=== PATIENT | male | born 1980 ===

== ENCOUNTER 2018-07-05 21:56 | Emergency (ER) | payer OTHER ==
[2018-07-05 22:04] VITALS: BP 156/76; PULSE 116; TEMP 98.2; BMI 29.0
[2018-07-05] MEDS ORDERED: CEFAZOLIN 2 GM in DEXTROSE 5%-WATER - 50 ML IVPB ONE (22:17)
[2018-07-05] MEDS ORDERED: morphine CARPU-JECT 2 MG/1 ML DISP.SYRIN IVPUSH ONE (22:17)
[2018-07-05] MEDS ORDERED: DIPHTH,PERTUSS(ACELL),TET 0.5 ML DISP.SYRIN IM ONE (22:17)
[2018-07-05] MEDS ORDERED: LIDOCAINE HCL 1%, 10 MG/ML (50 mL VIAL) INF ONE (22:20)
--- NOTE | 2018-07-05 22:24 | PDOC ---
Attending Attestation - HPI HPI: 07/06/18 00:08 The patient is a 37 yo M with no past medical history, who presents for evaluation of multiple dog bite wounds to bilateral hands and left ankle sustained just prior to arrival. The patient states his dog of many years was looking out of the window, saw a cat and when trying to calm the dog down was attacked. The patient reportedly stumbled in the kitchen as he was attempting to back up and fell. He denies hitting his head or LOC. He reports the dog has been his for several years, is fully vaccinated and this has never happened before. He does not recall his last tetanus shot. - Medical Decision Making 07/06/18 00:10 Documentation prepared by Jessie Smith, acting as medical transport specialist for Criss Johnson MD <Jessie Smith - Last Filed: 07/06/18 00:08> - Resident Resident Name: nAselmo Howell - ED Attending Attestation I have performed the following: I have examined & evaluated the patient, The case was reviewed & discussed with the resident, I agree w/resident's findings & plan, Exceptions are as noted - HPI HPI: 07/05/18 22:22 -year-old male was attacked by his pit bull/husky dog. According to him. The dog got excited after seeing a cat. He sustained multiple puncture wounds to both hands, right forearm and left legs - Physicial Exam PE: 07/06/18 01:05 wnwd 37 yo male presents after his own dog bit both his hands and his leg head ncat neck supple lungs cta b/l cvs [id number] abd nontender ext right and left hands have multiple puncture wounds ,swelling to left thenar emienence,full extension and flexion of all digits,he could abduct and adduct his thumbs leg there is a linear 4 cm laceration near his ankle psych appropriate neuro axox3,ambulatory - Medical Decision Making 07/05/18 22:24 He states he has no significant past medical history He has an allergy to aspirin and ibuprofen. He doesn't recall his last tetanus was 07/06/18 02:26 -plan tetanus,IV antibiotics ,x rays and wound care <Criss Johnson - Last Filed: 07/06/18 02:28>
[2018-07-05] MEDS ORDERED: LIDOCAINE HCL 2% (20ML MULTI-DOSE VIAL) NR ONE (22:27)
[2018-07-05] MEDS ORDERED: MORPHINE SULFATE 2 MG/ML VIAL ONE (22:36)
[2018-07-05] MEDS ORDERED: ceFAZolin SODIUM 1 GM VIAL ONE (22:37)
--- NOTE | 2018-07-05 22:47 | PDOC ---
History of Present Illness - General Chief Complaint: Bite Stated Complaint: DOGBITE Time Seen by Provider: 07/05/18 22:08 - History of Present Illness Initial Comments: The patient is a 37M w/ no reported PMH who presents for evaluation of multiple dog bite wounds that occurred just prior to arrival. The patient states that the dog was his, the dog was excited about a cat and has he went to calm him the dog bit him on both hands. The patient stumbled in the kitchen as he was attempting to back up and fell. He denies hitting his head or LOC. The reports bite wounds to both hands and his L ankle. He reports the dog has been his for several years, is fully vaccinated and this has never happened before. He does not recall his last tetnaus shot. He denies recent illness, fevers/chills, or allergies. 07/05/18 22:41 Past History - Past Medical History Allergies/Adverse Reactions: Allergies Allergy/AdvReac Type Severity Reaction Status Date / Time aspirin Allergy Severe Swelling Verified 07/05/18 22:04 ibuprofen [From Motrin] Allergy Severe Swelling Verified 07/05/18 22:04 Home Medications: Ambulatory Orders Amox-Tr/K Cl [Augmentin - 875Mg Tablet] 1 tab PO BID 10 Days #20 tablet COPD: No - Suicide/Smoking/Psychosocial Hx Smoking History: Never smoked Have you smoked in the past 12 months: No Information on smoking cessation initiated: No Hx Alcohol Use: No Drug/Substance Use Hx: No Substance Use Type: None Review of Systems - Review of Systems Able to Perform ROS?: Yes Comments:: GENERAL/CONSTITUTIONAL: No fever or chills. No weakness HEAD, EYES, EARS, NOSE AND THROAT: No change in vision. No ear pain or discharge. No sore throat CARDIOVASCULAR: No chest pain or shortness of breath RESPIRATORY: No cough, wheezing, or hemoptysis GASTROINTESTINAL: No nausea, vomiting, diarrhea or constipation GENITOURINARY: No dysuria, frequency, or change in urination MUSCULOSKELETAL: per HPI SKIN: per HPI NEUROLOGIC: No headache, vertigo, loss of consciousness, or change in strength/ sensation ENDOCRINE: No increased thirst. No abnormal weight change HEMATOLOGIC/LYMPHATIC: No anemia, easy bleeding, or history of blood clots ALLERGIC/IMMUNOLOGIC: No hives or skin allergy 07/05/18 22:46 Is the patient limited Slovenian proficient: No *Physical Exam - Vital Signs Last Vital Signs Temp Pulse Resp BP Pulse Ox 98.2 F 116 H 25 H 156/76 100 07/05/18 22:01 07/05/18 22:01 07/05/18 22:01 07/05/18 22:01 07/05/18 22:01 - Physical Exam Comments: GENERAL: Awake, alert, and fully oriented, in mild distress HEAD: No signs of trauma, normocephalic, atraumatic EYES: PERRL, EOMI, sclera anicteric, conjunctiva clear ENT: Hearing grossly normal, nares patent, oropharynx clear without exudates. Moist mucosa NECK: Normal ROM, supple LUNGS: No distress, speaks full sentences, clear to auscultation bilaterally HEART:Regular rate and rhythm, normal S1 and S2, no murmurs appreciated, peripheral pulses normal and equal bilaterally ABDOMEN: Soft, nontender, normoactive bowel sounds. No guarding, no rebound NEUROLOGICAL: Cranial nerves II through XII grossly intact. Normal speech, no focal sensorimotor deficits RUE: Inspection: Multiple puncture wounds 2/2 dog bite on dorsal and volar surface of hand. No exposed tendon, no obvious violation of tendon sheaths. No active hemorrhage. Compartments soft and compressible, pain within proportion, no pain to passive stretch. Laceration to ant. forearm, linear, simple, clean, approx 1cm Sensation: sensation present to light touch m/r/u n Motor: intact AIN/PIN/Ulnar in hand; 5/5 Wrist flex/ext; 5/5 Elbow flex/ext; 5/ 5 Shoulder ABd,Flex Vascular: 2+ radial pulse palpated, BCR all fingers <2 sec. LUE: Inspection: Multiple puncture wounds 2/2 dog bite on dorsal and volar surface of hand. No exposed tendon, no obvious violation of tendon sheaths. No active hemorrhage. Compartments soft and compressible, pain within proportion, no pain to passive stretch. Laceration over styloid, linear, simple, clean, approx 1.5cm. Multiple shallow abrasions along forearm without hemorrhage. Sensation: sensation present to light touch m/r/u n Motor: intact AIN/PIN/Ulnar in hand; 5/5 Wrist flex/ext; 5/5 Elbow flex/ext; 5/ 5 Shoulder ABd,Flex Vascular: 2+ radial pulse palpated, BCR all fingers <2 sec. RLE: Inspection: No erythema or ecchymosis. No tenderness, no obvious abnormalities, no open wounds. Compartments soft and compressible, pain within proportion, no pain to passive stretch Sensation: SPLT DP, SP, Tib, [place], Saph Motor: 5/5 EHL, 5/5 FHL, 5/5 TA, 5/5GS, 5/5 Quad, 5/5 Ham Vascular: 2+ DP/PT, all toes BCR <2 sec LLE: Inspection: Linear simple laceration over lateral malleolus without exposed tendon or bone or violation of the joint capsule. No active hemorrhage. Compartments soft and compressible, pain within proportion, no pain to passive stretch Sensation: SPLT DP, SP, Tib, [place], Saph Motor: 5/5 EHL, 5/5 FHL, 5/5 TA, 5/5GS, 5/5 Quad, 5/5 Ham Vascular: 2+ DP/PT, all toes BCR <2 sec 07/05/18 22:46 Procedures - Laceration/Wound Repair Left Hand Wound Length: to 2.5 cm Wound's Depth, Shape: superficial Irrigated w/ Saline: Yes Anesthesia: 2% Lidocaine Wound Debrided: minimal Wound Repaired With: Sutures Suture Size/Type: 4:0 Number of Sutures: 5 Layer Closure: No Sterile Dressing Applied: Yes Right Arm Wound Length: to 2.5 cm Wound's Depth, Shape: superficial Irrigated w/ Saline: Yes Anesthesia: 2% Lidocaine Wound Debrided: minimal Wound Repaired With: Sutures Suture Size/Type: 4:0, proline Number of Sutures: 3 Layer Closure: No Sterile Dressing Applied: Yes Left Lateral Ankle Wound Length: 2.6 to 5.0 cm Wound Explored: no foreign body present Wound's Depth, Shape: superficial Irrigated w/ Saline: Yes Anesthesia: 2% Lidocaine Amount of Anesthetic (ccs): 5 Wound Repaired With: Sutures Number of Sutures: 7 Deep Layer Suture Size/Type: 3:0, other (Nylon) Sterile Dressing Applied: Yes Medical Decision Making - Medical Decision Making The patient is a 37M w/ no reported PMH who presents for evaluation of dog bite wounds to b/l hands and laceration of L lateral ankle ED Course Morphine 2mg IV once Ancef 2g IV once Boostrix IM Laceration repair of L ankle and L wrist All other wounds cleaned and dressed with xeroform and kerlix Refer to procedure note for laceration repair details Wound care instructions given Follow up and return precautions given Rx for Augmentin Plan for D/C w/ wound care f/u Plan discussed w/ patient who verbalized understanding and is in agreement 07/05/18 22:47 Dispo Pending XR 07/06/18 02:30 B/l hand plain films w/o evidence of foreign object Discussed w/ patient importance of wound care and returning in 48 hours for re- evaluation Percocet 5mg once for pain Dispo: Home w/ 07/06/18 04:00 *DC/Admit/Observation/Transfer Diagnosis at time of Disposition: Bite by animal - Discharge Dispostion Disposition: HOME Condition at time of disposition: Improved Decision to Admit order: No - Prescriptions Prescriptions: Amox-Tr/K Cl [Augmentin - 875Mg Tablet] 1 tab PO BID 10 Days #20 tablet - Referrals Referrals: Katelin Felipe MD [Primary Care Provider] - - Patient Instructions Printed Discharge Instructions: How to Care for a Domestic Animal Bite Additional Instructions: You were seen in the Emergency Room tonight for an animal bite. You wounds were clean and dressed. Return to [facility] Emergency Room in 2 days for re- evaluation. Please follow up with your primary care doctor within the next 1-3 days. Return to the Emergency Department if you develop fevers, changes in sensation, decreased function of your hand, severe pain, or any new/concerning symptoms. - Post Discharge Activity
== END 2018-07-06 04:03 | disposition home or self-care (01) ==
LOC: JER 21:56
PROC: 0HQGXZZ Repair Left Hand Skin, External Approach (ICD-10-PCS; principal; 2018-07-05)
PROC: 0HQFXZZ Repair Right Hand Skin, External Approach (ICD-10-PCS; 2018-07-05)
PROC: 0HQLXZZ Repair Left Lower Leg Skin, External Approach (ICD-10-PCS; 2018-07-05)
PROC: 3E0234Z Introduction of Serum, Toxoid and Vaccine into Muscle, Percutaneous Approach (ICD-10-PCS; 2018-07-05)
PROC: 3E03329 Introduction of Other Anti-infective into Peripheral Vein, Percutaneous Approach (ICD-10-PCS; 2018-07-05)
PROC: 3E033NZ Introduction of Analgesics, Hypnotics, Sedatives into Peripheral Vein, Percutaneous Approach (ICD-10-PCS; 2018-07-05)
DX: S61.452A Open bite of left hand, initial encounter (principal); S61.451A Open bite of right hand, initial encounter; S91.052A Open bite, left ankle, initial encounter; W54.0XXA Bitten by dog, initial encounter; Y93.K9 Activity, other involving animal care; Y92.018 Other place in single-family (private) house as the place of occurrence of the external cause; Y99.8 Other external cause status
CPT/HCPCS: 73130-TC-LR-FY; 73130-TC-RT-FY; 90715; 99282-25